=== PATIENT | female | born 1990 | race Caucasian/White ===

== ENCOUNTER 2016-10-28 12:00 | Emergency (ER) | payer BC, MEDICAID ==
[2016-10-28] MEDS ORDERED: ONDANSETRON 4 MG/2 ML VIAL IVP ONE (12:36)
[2016-10-28 12:54] LABS: % IMMATURE GRANULYOCYTES 0.8 % (0.0-1.1); ABSOLUTE IMMATURE GRANULOCYTES 0.08 10^3/uL (0.00-0.10); ADD DIFF? NO; ADD MORPH? NO; ADD SCAN? NO; ATYPICAL LYMPHOCYTE FLAG 0 (0-99); FRAGMENT RBC FLAG 0 (0-99); HEMATOCRIT 33.9 % (38.0-47.0); LEFT SHIFT FLG 0 (0-99); LIPEMIA HEMOLYSIS FLAG 90 (0-99); MEAN CELL HEMOGLOBIN 33.2 pg (27.9-34.1); MEAN CELL HEMOGLOBIN CONCENTR. 35.4 g/dL (32.4-36.7); MEAN CELL VOLUME 93.9 fL (81.5-99.8); MEAN PLATELET VOLUME 10.7 fL (8.7-11.7); PLATELET CLUMPS FLAG 10 (0-99); PLATELET COUNT 210 10^3/uL (150-400); RED BLOOD CELL COUNT 3.61 10^6/uL (4.18-5.33); RED CELL DISTRIBUTION WIDTH 12.8 % (11.5-15.2)
[2016-10-28 13:08] LABS: ALANINE AMINOTRANSFERASE 22 IU/L (9-52); ALBUMIN 3.6 g/dL (3.5-5.0); ALKALINE PHOSPHATASE 71 IU/L (38-126); ANION GAP 9 mEq/L (8-16); ASPARTATE AMINOTRANSFERASE 20 IU/L (14-46); BILIRUBIN,TOTAL 0.5 mg/dL (0.1-1.4); BILIRUBIN-CONJUGATED 0.2 mg/dL (0.0-0.5); BILIRUBIN-UNCONJUGATED 0.3 mg/dL (0.0-1.1); CALCIUM 8.9 mg/dL (8.5-10.4); CARBON DIOXIDE 21 mEq/l (22-31); CHLORIDE 103 mEq/L (97-110); CREATININE 0.6 mg/dL (0.6-1.0); GLOMERULAR FILTRATION RATE > 60; GLUCOSE 81 mg/dL (70-100); SODIUM 133 mEq/L (134-144); TOTAL PROTEIN 6.3 g/dL (6.3-8.2)
--- NOTE | 2016-10-28 15:24 | EDPHY ---
H & P Stated Complaint: L sided weakness 30 wks started at 13 dc'd from [place] on sat - Personal History LMP (Females 10-55): Current Tetanus/Diphtheria Vaccine: Yes Current Tetanus Diphtheria and Acellular Pertussis (TDAP): Yes - Medical/Surgical History Hx Asthma: No Hx Chronic Respiratory Disease: No Hx Diabetes: No Hx Cardiac Disease: No Hx Renal Disease: No Hx Cirrhosis: No Hx Alcoholism: No Hx HIV/AIDS: No Hx Splenectomy or Spleen Trauma: No Other PMH: 1, para 0. 30 weeks . - Social History Smoking Status: Never smoked Time Seen by Provider: 10/28/16 12:14 HPI/ROS: Chief complaint: Left leg numbness and paralysis History of present illness: This is a 26-year-old female, 1, para 0 who is 30 weeks who presents to the emergency department for left leg numbness and paralysis. Patient reports just over a week ago she developed a headache. She does have a history of migraine headaches, was typical in nature. However she subsequently developed numbness and difficulty moving both of her legs. Ultimately symptoms resolved in the right leg but remained in the left leg. She did call 911 at the onset of these symptoms was taken to [facility]. She had an extensive workup and was admitted to the hospital for approximately 4 days. She was seen by Neurology during that time. She is not sure what her diagnosis was, thinks it was a typical migraine. She presents today because symptoms persist in the left leg. She states on occasion in addition to the numbness and paralysis in the left leg it will become swollen, blue and cold. She denies other associated signs or symptoms. Review of systems: A 10 point review of systems was obtained and other than described above was negative (Uriel Acosta) - Physical Exam Exam: General Appearance: Alert, no distress. Eyes: Pupils equal and round no pallor or injection. ENT, Mouth: Mucous membranes moist. Respiratory: There are no retractions, lungs are clear to auscultation. Cardiovascular: Regular rate and rhythm. Gastrointestinal: Gravid abdomen. Neurological: Alert and oriented. Cranial nerves 2-12 grossly intact. Strength and sensation intact and symmetrical in the upper extremities. Decreased sensation reported the left leg and decreased strength. Patellar and Achilles reflexes 2+ on the right, 1+ on the left. Skin: Warm and dry, no rashes. Musculoskeletal: Moving upper extremities well. Moving right lower extremity well. Difficulty moving the left lower extremity. Psychiatric: Patient is oriented X 3, there is no agitation. (Uriel Acosta) Constitutional: Initial Vital Signs Temperature (C) 36.9 C 10/28/16 12:01 Heart Rate 74 10/28/16 12:01 Respiratory Rate 16 10/28/16 12:01 Blood Pressure 100/69 10/28/16 12:01 O2 Sat (%) 96 10/28/16 12:01 O2 Delivery Mode Room Air Allergies/Adverse Reactions: No Known Allergies Allergy (Unverified 04/15/12 15:20) Home Medications: Medication Instructions Recorded Miscellaneous Medical Supply [NO 1 ea MISC AD 04/15/12 HOME MEDS] Medical Decision Making - Diagnostics Imaging: Discussed imaging studies w/ orthopedically impaired teacher Radiologist - Diagnostics Imaging Results: Imaging Impressions Lumbar Spine MRI 10/28/16 15:24 Impression: 1. No visible etiology for the patient's symptoms. 2. Mild right hydronephrosis, commonly seen at this stage of . 3. Please see above findings at specific disk levels. Findings discussed with Uriel Acosta PA-C on 10/28/2016 at 1645 hours. Extremity Venous Study 10/28/16 17:10 Impression: No evidence of deep vein thrombosis in either lower extremity. Results called and discussed with Dr. Ryley Lo on 10/28/2016 at 18:02 Procedures: monitoring performed by OBGYN and reported as normal (Uriel Acosta) ED Course/Re-evaluation: Imaging studies performed at [facility] were obtained, patient had extensive imaging on 10/21/2016 which included a negative CT without contrast of the head, a negative CTA of the head and neck, a negative MRI of the brain without contrast, a negativeEMR of the cervical and thoracic spine without contrast, negative duplex venous ultrasound of the legs bilaterally and a negative left arterial ultrasound. Patient was discussed with my secondary supervising physician Dr. Ryley Lo. Patient presents to the emergency department for left leg numbness and paralysis. The leg is vascularly intact. Patient is nontoxic. Vital signs are stable. Imaging study reports are obtained from [facility]. I do not see that an MRI of the lumbar spine was obtained. This is obtained at this hospital and negative. A repeat ultrasound will be obtained insure no thromboembolic disease. Further psychiatric services will see patient given her already extensive workup at [facility] with no source of symptoms. Care of patient is turned over to my attending physician Dr. Ryley Lo at end of shift. (Uriel Acosta) 1801: US of the lower extremity is negative for DVT per Dr. Uriel West, radiology. This patient has had a significantly thorough workup. She came in to [facility] as a stroke alert and head CT neuro imaging and CT angiography of her head and neck. She then had MR imaging of her neck head and thoracic spine. She had neurology consult and multiple evaluations while at [facility] and they could not find a reason that she would not move her left leg. This subsequently discharged her. She came here with the same complaints. She refuses to move her leg or really talk to anyone much. She does have a psychiatric history. She is 30 weeks . Laboratory studies here are unremarkable. monitoring is all normal. Performed and MRI of her lumbar spine since she has not had that and that was unremarkable also. Lastly, we performed an ultrasound of her left leg to rule out DVT and that was normal. Consequently, we will engage the services of the psychiatric team to delineate whether this patient is having a conversion type disorder or maybe some reason for malingering. This patient had a full psychiatric evaluation. They do think she may have a somatization or mild conversion disorder but do not think she needs admission and feels like she can be worked up as an outpatient. The patient is in agreement and also her mother and significant other are here at bedside. ( Ryley Lo) - Data Points Laboratory Results: Laboratory Results 10/28/16 12:41 10/28/16 12:41 10/28/16 10/28/16 10/28/16 15:50 15:37 12:41 WBC RBC Hgb Hct MCV MCH MCHC RDW Plt Count MPV Neut % (Auto) Lymph % (Auto) Thomas % (Auto) Eos % (Auto) Baso % (Auto) Nucleat RBC Rel Count Absolute Neuts (auto) Absolute Lymphs (auto) Absolute Monos (auto) Absolute Eos (auto) Absolute Basos (auto) Absolute Nucleated RBC Immature Gran % Immature Gran # Sodium Potassium Chloride Carbon Dioxide Anion Gap BUN Creatinine Estimated GFR Glucose Calcium Total Bilirubin Conjugated Bilirubin Unconjugated Bilirubin AST ALT Alkaline Phosphatase Total Protein Albumin Beta HCG, Qual POSITIVE Urine Color YELLOW Urine Appearance MODERATELY TURBID Urine pH 7.0 (5.0-7.5) Ur Specific [place] 1.018 (1.002-1.030) Urine Protein 1+ H (NEGATIVE) Urine Ketones NEGATIVE (NEGATIVE) Urine Blood NEGATIVE (NEGATIVE) Urine Nitrate NEGATIVE (NEGATIVE) Urine Bilirubin NEGATIVE (NEGATIVE) Urine Urobilinogen NEGATIVE EU EU (0.2-1.0) Ur Leukocyte Esterase NEGATIVE (NEGATIVE) Urine RBC 5-10 /hpf H /hpf (0-3) Urine WBC 1-3 /hpf /hpf (0-3) Ur Epithelial Cells 1+ /lpf /lpf (NONE-1+) Amorphous Sediment PRESENT /hpf /hpf (NONE-1+) Urine Bacteria 1+ /hpf H /hpf (NONE SEEN) Urine Mucus 2+ /lpf H /lpf (NONE-1+) Urine Glucose NEGATIVE (NEGATIVE) Urine Opiates Screen NEGATIVE (NEGATIVE) Urine Barbiturates NEGATIVE (NEGATIVE) Ur Phencyclidine Scrn NEGATIVE (NEGATIVE) Ur Amphetamine Screen NEGATIVE (NEGATIVE) U Benzodiazepines Scrn NEGATIVE (NEGATIVE) Urine Cocaine Screen NEGATIVE (NEGATIVE) U Marijuana (THC) Screen NEGATIVE (NEGATIVE) 10/28/16 10/28/16 12:41 12:41 WBC 9.83 10^3/uL H 10^3/uL (3.80-9.50) RBC 3.61 10^6/uL L 10^6/uL (4.18-5.33) Hgb 12.0 g/dL L g/dL (12.6-16.3) Hct 33.9 % L % (38.0-47.0) MCV 93.9 fL fL (81.5-99.8) MCH 33.2 pg pg (27.9-34.1) MCHC 35.4 g/dL g/dL (32.4-36.7) RDW 12.8 % % (11.5-15.2) Plt Count 210 10^3/uL 10^3/uL (150-400) MPV 10.7 fL fL (8.7-11.7) Neut % (Auto) 74.7 % H % (39.3-74.2) Lymph % (Auto) 14.9 % L % (15.0-45.0) Thomas % (Auto) 8.0 % % (4.5-13.0) Eos % (Auto) 1.2 % % (0.6-7.6) Baso % (Auto) 0.4 % % (0.3-1.7) Nucleat RBC Rel Count 0.0 % % (0.0-0.2) Absolute Neuts (auto) 7.34 10^3/uL H 10^3/uL (1.70-6.50) Absolute Lymphs (auto) 1.46 10^3/uL 10^3/uL (1.00-3.00) Absolute Monos (auto) 0.79 10^3/uL 10^3/uL (0.30-0.80) Absolute Eos (auto) 0.12 10^3/uL 10^3/uL (0.03-0.40) Absolute Basos (auto) 0.04 10^3/uL 10^3/uL (0.02-0.10) Absolute Nucleated RBC 0.00 10^3/uL 10^3/uL (0-0.01) Immature Gran % 0.8 % % (0.0-1.1) Immature Gran # 0.08 10^3/uL 10^3/uL (0.00-0.10) Sodium 133 mEq/L L mEq/L (134-144) Potassium 4.0 mEq/L mEq/L (3.5-5.2) Chloride 103 mEq/L mEq/L (97-110) Carbon Dioxide 21 mEq/l L mEq/l (22-31) Anion Gap 9 mEq/L mEq/L (8-16) BUN 9 mg/dL mg/dL (7-23) Creatinine 0.6 mg/dL mg/dL (0.6-1.0) Estimated GFR > 60 Glucose 81 mg/dL mg/dL (70-100) Calcium 8.9 mg/dL mg/dL (8.5-10.4) Total Bilirubin 0.5 mg/dL mg/dL (0.1-1.4) Conjugated Bilirubin 0.2 mg/dL mg/dL (0.0-0.5) Unconjugated Bilirubin 0.3 mg/dL mg/dL (0.0-1.1) AST 20 IU/L IU/L (14-46) ALT 22 IU/L IU/L (9-52) Alkaline Phosphatase 71 IU/L IU/L (38-126) Total Protein 6.3 g/dL g/dL (6.3-8.2) Albumin 3.6 g/dL g/dL (3.5-5.0) Beta HCG, Qual Urine Color Urine Appearance Urine pH Ur Specific [place] Urine Protein Urine Ketones Urine Blood Urine Nitrate Urine Bilirubin Urine Urobilinogen Ur Leukocyte Esterase Urine RBC Urine WBC Ur Epithelial Cells Amorphous Sediment Urine Bacteria Urine Mucus Urine Glucose Urine Opiates Screen Urine Barbiturates Ur Phencyclidine Scrn Ur Amphetamine Screen U Benzodiazepines Scrn Urine Cocaine Screen U Marijuana (THC) Screen Medications Given: Discontinued Medications Ondansetron HCl (Zofran) 4 mg IVP EDNOW ONE Stop: 10/28/16 12:37 Last Admin: 10/28/16 12:49 Dose: 4 mg Departure - Departure Disposition: Home, Routine, Self-Care Clinical Impression: Left leg weakness, Somatization disorder Condition: Good Instructions: Leg Pain (ED) Referrals: REN ABBOTT [Primary Care Provider] - As per Instructions
[2016-10-28 15:43] LABS: COLOR YELLOW; LEUKOCYTE ESTERASE,URINE NEGATIVE (NEGATIVE); NITRITE,URINE NEGATIVE (NEGATIVE)
[2016-10-28 15:54] LABS: AMORPHOUS PRESENT /hpf (NONE-1+); BACTERIA 1+ /hpf (NONE SEEN); MUCUS 2+ /lpf (NONE-1+)
[2016-10-28 20:27] VITALS: BP 118/70; PULSE 77; RESP 14; TEMP 98.8; O2SAT 97
== END 2016-10-28 20:26 | disposition home or self-care (01) ==
DX: O99.89 Other specified diseases and conditions complicating pregnancy, childbirth and the puerperium (principal); M62.81 Muscle weakness (generalized); O99.343 Other mental disorders complicating pregnancy, third trimester; F45.0 Somatization disorder; Z3A.30 30 weeks gestation of pregnancy
CPT/HCPCS: 80305; 96374; J2405